=== PATIENT | male | born 1995 | race African-American/Black ===

== ENCOUNTER 2025-02-02 07:34 | Emergency (ER) | payer OTHER ==
[~2025-02-02] VITALS: Ht 190.5 cm; Wt 105.5 kg
[2025-02-02 10:51] VITALS: BP 133/72; TEMP 98.5; O2SAT 99
[2025-02-02] MEDS: LIDOCAINE W/EPINEPHrine 1% 20 ML VIAL SC ONE (11:32)
[2025-02-02] MEDS ORDERED: CEPH500C PO (11:33)
[2025-02-02] MEDS: CEPHALEXIN 500 MG CAP PO ONE (11:37)
== END 2025-02-02 11:42 | disposition home or self-care (01) ==
LOC: M ED 07:34
DX: L98.8 Other specified disorders of the skin and subcutaneous tissue (principal); S70.351A Superficial foreign body, right thigh, initial encounter; Y92.9 Unspecified place or not applicable; Y93.9 Activity, unspecified; Y99.9 Unspecified external cause status; Z79.2 Long term (current) use of antibiotics